=== PATIENT | female | born 1930 | race Asian ===

== ENCOUNTER 2016-10-24 07:55 | Inpatient (IN) | payer MEDICARE, OTHER ==
[~2016-10-24] VITALS: Ht 152.4 cm; Wt 56.0 kg
[2016-10-24] VITALS (202 sets, daily range): BP systolic 147–188; BP diastolic 67–93; PULSE 59–73; TEMP 97–98.5; O2SAT 90–100
[~2016-10-24 07:55] MED LIST: ANTIVERT 25MG25 MG PO; ANUCORT HC25 M1 RC; ASPIRIN 32325 MG/TAB PO; BETAPACE 120MG120 MG PO; BETAPACE 80MG80 MG PO; CALTRATE 600 +1 TAB PO; CALTRATE PLUS1 TAB PO; CELLUVISC OP; COLACE 100100 MG/CAP PO; CYCLOSPORINE OP; LIPITOR 10MG10 MG PO; MEGA MULTIVITAM1 TAB PO; MIRALAX PA17 GM/Dose PO; NEURONTIN100 MG/CAP PO; NEXIUM 40MG40 MG PO; NORVASC2.5 MG PO; OCUVITE1 TA1 PO; OMEGA 31000 MG PO; REFRESH CELLUVI1 SOL OP; REFRESH DRY EYE15 ML OP; REFRESH OPTIVE10 M2 OP; RESTASIS 60VL OU; SYNTHROID0.1 MG/TAB PO; TENORMIN 5050 MG/TAB PO; TYLENOL 325MG325 MG PO; ULTRAM 50MG TAB50 MG PO; XANAX 0.5MG0.5 MG PO; ZANTAC 150MG T150 MG PO; ZOFRAN 4MG T4 MG/TAB PO
[2016-10-24 09:29] LABS: CALCIUM 9.4 mg/dL (8.4-10.2); CREATININE, serum 0.48 mg/dL (0.52-1.25); MAGNESIUM 2.2 mg/dL (1.6-2.3); POTASSIUM 3.6 mmol/L (3.4-5.0)
[2016-10-24 11:15] LABS: PROTHROMBIN TIME 11.2 SECONDS (9.7-12.8)
[2016-10-24 11:17] LABS: BASO # 0.1 (0.0-0.2); BASO % 0.7 % (0.0-2.0); EOS # 0.1 (0.0-0.7); EOS % 1.6 % (0-4.0); GRAN # 4.2 (1.4-6.5); GRAN % 60.1 % (42.2-75.2); LYMPH # 2.1 (1.2-3.4); LYMPH % 29.7 % (20.0-51.0); MEAN CELL VOLUME 98 fl (80.0-100.0); MEAN CORPUSCULAR HGB CONC 33 g/dl (33.0-37.0); MEAN PLATELET VOLUME 11.3 fl (7.4-10.4); MONO # 0.5 (0.1-0.6); MONO % 7.6 % (1.7-9.3); PLATELET COUNT 185 K/mm3 (130-400); RED BLOOD COUNT 3.64 M/mm3 (4.10-5.30); REDCELL DISTRIBUTION WIDTH-CV 14.4 % (11.5-14.5); WHITE BLOOD COUNT 7.1 K/mm3 (4.8-10.8)
[2016-10-24 11:21] LABS: HEMATOCRIT 35.6 % (37.0-47.0); HEMOGLOBIN 11.9 g/dl (12.5-16.0); MEAN CORPUSCULAR HEMOGLOBIN 33 pg (27.0-31.0)
[2016-10-24 11:43] LABS: ADJUSTED CALCIUM 9.7 mg/dL (8.4-10.2); ALBUMIN 3.6 gm/dL (3.5-5.0); BILIRUBIN,TOTAL 0.7 mg/dL (0.0-1.0); TOTAL PROTEIN 6.8 gm/dL (6.4-8.2)
[2016-10-25 00:32] VITALS: BP 139/69; PULSE 60; TEMP 97.7
[2016-10-25 03:35] VITALS: BP 110/62; PULSE 124
[2016-10-25 05:03] VITALS: BP 144/66; PULSE 120; TEMP 98.2
[2016-10-25 07:34] LABS: BASO # 0.1 (0.0-0.2); BASO % 0.8 % (0.0-2.0); EOS # 0.1 (0.0-0.7); EOS % 1.7 % (0-4.0); GRAN % 50.4 % (42.2-75.2); HEMOGLOBIN 13.1 g/dl (12.5-16.0); LYMPH # 2.3 (1.2-3.4); LYMPH % 38.4 % (20.0-51.0); MEAN CELL VOLUME 96 fl (80.0-100.0); MEAN CORPUSCULAR HEMOGLOBIN 32 pg (27.0-31.0); MEAN CORPUSCULAR HGB CONC 34 g/dl (33.0-37.0); MEAN PLATELET VOLUME 10.7 fl (7.4-10.4); MONO # 0.5 (0.1-0.6); MONO % 8.5 % (1.7-9.3); PLATELET COUNT 194 K/mm3 (130-400); RED BLOOD COUNT 4.06 M/mm3 (4.10-5.30); REDCELL DISTRIBUTION WIDTH-CV 14.3 % (11.5-14.5); WHITE BLOOD COUNT 5.9 K/mm3 (4.8-10.8)
[2016-10-25 07:40] LABS: ADJUSTED CALCIUM 9.7 mg/dL (8.4-10.2); ALBUMIN 3.6 gm/dL (3.5-5.0); BILIRUBIN,TOTAL 0.8 mg/dL (0.0-1.0); CALCIUM 9.4 mg/dL (8.4-10.2); CREATININE, serum 0.48 mg/dL (0.52-1.25); MAGNESIUM 2.1 mg/dL (1.6-2.3); POTASSIUM 3.4 mmol/L (3.4-5.0)
[2016-10-25 08:53] VITALS: BP 129/65; PULSE 86; TEMP 97.1
[2016-10-25 10:45] VITALS: BP 135/78; PULSE 68; TEMP 97.7
[2016-10-25 19:39] VITALS: BP 150/86; PULSE 67; TEMP 98.2
[2016-10-26] VITALS (7 sets, daily range): BP systolic 124–150; BP diastolic 63–87; PULSE 64–95; TEMP 97.5–98.5
[2016-10-26 08:19] LABS: BASO % 0.8 % (0.0-2.0); EOS # 0.1 (0.0-0.7); EOS % 1.4 % (0-4.0); GRAN % 58.3 % (42.2-75.2); HEMOGLOBIN 13.1 g/dl (12.5-16.0); LYMPH # 1.7 (1.2-3.4); LYMPH % 32.3 % (20.0-51.0); MEAN CELL VOLUME 96 fl (80.0-100.0); MEAN CORPUSCULAR HEMOGLOBIN 32 pg (27.0-31.0); MEAN CORPUSCULAR HGB CONC 34 g/dl (33.0-37.0); MEAN PLATELET VOLUME 10.8 fl (7.4-10.4); MONO # 0.4 (0.1-0.6); PLATELET COUNT 195 K/mm3 (130-400); RED BLOOD COUNT 4.08 M/mm3 (4.10-5.30); WHITE BLOOD COUNT 5.1 K/mm3 (4.8-10.8)
[2016-10-26 08:32] LABS: ADJUSTED CALCIUM 10.2 mg/dL (8.4-10.2); ALBUMIN 3.8 gm/dL (3.5-5.0); BILIRUBIN,TOTAL 0.9 mg/dL (0.0-1.0); CREATININE, serum 0.53 mg/dL (0.52-1.25); POTASSIUM 3.4 mmol/L (3.4-5.0); TOTAL PROTEIN 7.2 gm/dL (6.4-8.2)
[2016-10-27 03:53] VITALS: BP 132/70; PULSE 72; TEMP 97.8
[2016-10-27 07:27] LABS: BASO % 0.7 % (0.0-2.0); EOS # 0.1 (0.0-0.7); EOS % 1.5 % (0-4.0); HEMOGLOBIN 13.2 g/dl (12.5-16.0); LYMPH # 1.8 (1.2-3.4); LYMPH % 33.3 % (20.0-51.0); MEAN CELL VOLUME 96 fl (80.0-100.0); MEAN CORPUSCULAR HEMOGLOBIN 32 pg (27.0-31.0); MEAN CORPUSCULAR HGB CONC 34 g/dl (33.0-37.0); MEAN PLATELET VOLUME 10.3 fl (7.4-10.4); MONO # 0.4 (0.1-0.6); MONO % 8.1 % (1.7-9.3); PLATELET COUNT 191 K/mm3 (130-400); RED BLOOD COUNT 4.08 M/mm3 (4.10-5.30); REDCELL DISTRIBUTION WIDTH-CV 13.8 % (11.5-14.5); WHITE BLOOD COUNT 5.3 K/mm3 (4.8-10.8)
[2016-10-27 07:39] LABS: ADJUSTED CALCIUM 9.9 mg/dL (8.4-10.2); ALBUMIN 3.8 gm/dL (3.5-5.0); BILIRUBIN,TOTAL 0.9 mg/dL (0.0-1.0); CALCIUM 9.7 mg/dL (8.4-10.2); CREATININE, serum 0.51 mg/dL (0.52-1.25); POTASSIUM 3.3 mmol/L (3.4-5.0); TOTAL PROTEIN 7.1 gm/dL (6.4-8.2)
[2016-10-27 07:53] VITALS: BP 136/75; PULSE 70; TEMP 98
[2016-10-27 12:24] VITALS: BP 146/79; PULSE 74; TEMP 97.6
[2016-10-27 16:26] VITALS: BP 143/73; PULSE 75; TEMP 98.1
[2016-10-27 21:03] VITALS: BP 120/74; PULSE 79; TEMP 98.7
[2016-10-27 23:46] VITALS: BP 123/76; PULSE 74; TEMP 98.2
[2016-10-28 03:57] VITALS: BP 125/69; PULSE 70; TEMP 97.8
[2016-10-28 07:46] VITALS: BP 149/72; PULSE 71; TEMP 97.5
[2016-10-28 08:32] LABS: INR 1.1 (0.8-3.0); PROTHROMBIN TIME 12.3 SECONDS (9.7-12.8)
[2016-10-28 08:43] LABS: POTASSIUM 3.4 mmol/L (3.4-5.0)
[2016-10-28 09:15] LABS: THYROID STIMULATING HORMONE 3.74 uIU/mL (0.465-4.680)
[2016-10-28] MEDS ORDERED: CEPHALEXIN500 M1 PO (10:11)
[2016-10-28] MEDS ORDERED: APRESOLINE 25MG25 MG PO (10:12)
[2016-10-28] MEDS ORDERED: HYZAAR 25 MG-101 TAB PO (10:13)
[2016-10-28] MEDS ORDERED: PACERONE100 MG PO (10:13)
== END 2016-10-28 11:24 | disposition home or self-care (01) | DRG 262 ==
LOC: MEDICAL 07:55 → IMCU 07:59 → MEDICAL 12:05
PROVIDERS: Internal Medicine Cardiovascular Disease
PROC: 0JH632Z Insertion of Monitoring Device into Chest Subcutaneous Tissue and Fascia, Percutaneous Approach (ICD-10-PCS; principal; 2016-10-25)
DX: I48.0 Paroxysmal atrial fibrillation (principal); I10 Essential (primary) hypertension

== ENCOUNTER 2017-01-08 07:52 | Day surgery (SDC) | payer MEDICARE, OTHER ==
[~2017-01-08] VITALS: Ht 152.4 cm; Wt 54.1 kg
[~2017-01-08 07:52] MED LIST changes: +APRESOLINE 25MG25 MG PO; +CEPHALEXIN500 M1 PO; +HYZAAR 25 MG-101 TAB PO; +PACERONE100 MG PO
[2017-01-08 08:11] VITALS: BP 167/69; PULSE 61; TEMP 97.8
[2017-01-08] MEDS ORDERED: ANUSOL-HC SUPPO25 MG RC (09:11)
[2017-01-08] MEDS ORDERED: MICRO-K 10 EXT10 MEQ PO (09:14)
[2017-01-08 09:34] VITALS: BP 184/81; PULSE 55
[2017-01-08 10:30] VITALS: BP 156/83; PULSE 54
[2017-01-08] MEDS ORDERED: NORCO 325 MG-51 TAB PO (10:44)
[2017-01-08 10:45] VITALS: BP 164/88; PULSE 53
[2017-01-08] MEDS ORDERED: CEPHALEXIN500 M1 PO (10:45)
[2017-01-08 11:00] VITALS: BP 167/88; PULSE 53
== END 2017-01-08 11:49 | disposition home or self-care (01) ==
LOC: COL.CAR 07:52
DX: I48.0 Paroxysmal atrial fibrillation (principal); I10 Essential (primary) hypertension; E07.9 Disorder of thyroid, unspecified; Z79.82 Long term (current) use of aspirin; Z79.899 Other long term (current) drug therapy
CPT/HCPCS: J0690; J2250; J3010; J7040

== ENCOUNTER → 2017-04-11 | Outpatient (CLI) | payer MEDICARE, OTHER ==
[~2017-04-11] MED LIST changes: +ANUSOL-HC SUPPO25 MG RC; +MICRO-K 10 EXT10 MEQ PO; +NORCO 325 MG-51 TAB PO
== END ==
LOC: COL.PUL 04-03 08:00
DX: Z79.899 Other long term (current) drug therapy (principal)

== ENCOUNTER → 2018-11-16 | Outpatient (CLI) | payer MEDICARE, OTHER | LOC: COL.PUL 12:38 | DX: R06.02 Shortness of breath (principal) | CPT/HCPCS: J7674 ==

== ENCOUNTER → 2020-06-02 | Outpatient (CLI) | payer MEDICARE, OTHER | LOC: COL.RAD 10:21 | DX: K82.8 Other specified diseases of gallbladder (principal); K92.1 Melena; K59.00 Constipation, unspecified; M62.89 Other specified disorders of muscle ==

== ENCOUNTER 2020-06-22 13:20 | Day surgery (SDC) | payer MEDICARE, OTHER ==
[~2020-06-22] VITALS: Ht 149.9 cm; Wt 50.7 kg
--- NOTE | 2020-06-22 13:52 | NUR ---
Patient alert, oriented. hard of hearing. uses cane to ambulate. Patient placed on high fall due to unsteady gait. patient daughter Lucita is at bedside. Daughter said patient is getting Endoscopy and colonoscopy because she has a chronic constipation but patient believe something might be going wrong with her body. Patient resting in bed at this time. patient daughter mentioned patient has been on clear liquid since 9am today 06/22/2020.
--- NOTE | 2020-06-22 14:12 | NUR ---
Attempted to call Dr Thomas for colonoscopy and endoscopy order scheduled for tomorrow 06/23/2020.
[2020-06-22 14:49] VITALS: BP 113/67; PULSE 62; TEMP 98.2
[2020-06-22] MEDS ORDERED: NORVASC 5MG5 MG/TAB PO (14:58)
[2020-06-22] MEDS ORDERED: LINZESS290CAP PO (14:59)
[2020-06-22 16:20] VITALS: BP 129/67; PULSE 61; TEMP 98.1
[2020-06-22 19:04] VITALS: BP 144/68; PULSE 63; TEMP 97.8
--- NOTE | 2020-06-22 19:22 | NUR ---
Patient started bowel prep at 1840. report given to kacey Castro.
--- NOTE | 2020-06-22 21:11 | NUR ---
Pt assessment completed and documented. Pt resting in bed at this time watching television. A&O x4. Denies pain. Dr. Thomas notified of pt having episode of emesis. PRN zofran ordered and given per orders. INT to left forearm CDI. Pt attempting to drink bowel prep at this time however states it is difficult with the nausea. Pt denies any needs/ concerns at this time. Call light within reach. Bed alarm on. Will continue to monitor
[2020-06-22 23:11] VITALS: BP 137/74; PULSE 66; TEMP 97.5
[2020-06-23 03:20] VITALS: BP 127/62; PULSE 65; TEMP 98.3
--- NOTE | 2020-06-23 05:09 | NUR ---
Pt up multiple times to bathroom overnight. Stool watery brown this AM. Bowel prep finished before midnight. PRN zofran given x2 for emesis. No complaints of pain. Bed alarm on. Call light within reach.
--- NOTE | 2020-06-23 06:47 | NUR ---
Report given to ANGELA Yeh
--- NOTE | 2020-06-23 07:26 | NUR ---
PT TO PROCEEDURE AT THIS TIME.
[2020-06-23 07:47] VITALS: BP 102/54; PULSE 52
--- NOTE | 2020-06-23 08:10 | NUR ---
Pt returned to room post proceedure. Discharge orders recieved. Pt resting in bed,VSS daughter at bedside.
--- NOTE | 2020-06-23 09:55 | NUR ---
PT RETURNED FROM PROCEEDURE, VSS DISCHARGE ORDERS RECIEVED. IV DISCONTINUED, PT DRESSING AND WILL LEAVE VIA POV WITH DAUGHTER.
== END 2020-06-23 09:30 | disposition home or self-care (01) ==
LOC: SDCO 13:20 → MEDICAL 13:20 → SDCO 13:38 → MEDICAL 13:38 → SDCO 06-23 07:00
DX: K21.9 Gastro-esophageal reflux disease without esophagitis (principal); K58.1 Irritable bowel syndrome with constipation; K92.1 Melena; K57.30 Diverticulosis of large intestine without perforation or abscess without bleeding; M62.89 Other specified disorders of muscle; I10 Essential (primary) hypertension; I48.91 Unspecified atrial fibrillation; E78.00 Pure hypercholesterolemia, unspecified; E03.9 Hypothyroidism, unspecified; I35.1 Nonrheumatic aortic (valve) insufficiency; H40.9 Unspecified glaucoma; R20.0 Anesthesia of skin; M19.90 Unspecified osteoarthritis, unspecified site; Z90.710 Acquired absence of both cervix and uterus; Z79.899 Other long term (current) drug therapy; Z88.2 Allergy status to sulfonamides; Z79.82 Long term (current) use of aspirin; Z86.73 Personal history of transient ischemic attack (TIA), and cerebral infarction without residual deficits
CPT/HCPCS: OP; J2405; J2704; J7030